=== PATIENT | female | born 1950 | race Caucasian/White ===

== ENCOUNTER → 2016-11-30 | Outpatient (CLI) | payer OTHER ==
[~2016-11-30] MED LIST: ALKA-SELTZER D1 EACH PO; AMBIEN 5 MG TABL5 M1; AMITRIPTYLINE; ASPIRIN325; AUGMENTIN 500-1 EACH PO; BENADRYL25 MG; FEOSOL325 M1 PO; FLEXERIL; HYDROCODONE-APA1 TA1; LEVOTHYROXINE150 MCG; LOPERAMIDE 2 MG2 M1 PO; METFORMIN HCL500 MG PO; METHOCARBAM; MILK THISTLE175 M3; MUCINEX TA600 MG/TA2 PO; OXYCODONE; PEPCID20 MG; PROAIR RESPICL90 MCG IH; SENNA8.6 MG; TYLENOL; VASOTEC10 MG; VASOTEC10 MG PO; VITAMIN B-12500 MCG PO
--- NOTE | ~2016-11-30 | P ---
[facility] [place] [address] PROCEDURE REPORT Name: AWILDA COOK Room #: REG [facility]#: [id number] Admission: 11/30/16 Attend Phys: Mitchel Simmons Discharge: Date of : 48 Report #: [id number] THIS REPORT FOR: //name// CC: Roberto Watson DATE OF SERVICE: 11/30/2016 PROCEDURE PERFORMED: Upper endoscopy with biopsies. HISTORY OF PRESENT ILLNESS: The patient is a 66-year-old female with a history of iron deficiency anemia. She states her hemoglobin has been in the 8-9 range. She denies any obvious bright red blood per rectum or melena. She denies any abdominal pain. Last colonoscopy was approximately 2006 with 3 polyps removed at that time reportedly. Family history is unknown as she is adopted. Plan is for EGD and colonoscopy today. DESCRIPTION OF PROCEDURE: The risks and benefits of the procedure were explained to the patient, those risks including but not limited to bleeding, perforation, the risk of sedation. She understood these risks and gave informed consent. Sedation was given using ketamine and propofol per anesthesia. Next, using a standard Bizzbyinon upper endoscope, the scope was placed in the patient's mouth and advanced under direct vision through the esophagus, stomach and into the second portion of the duodenum. The esophagus was normal throughout. The GE junction was normal. Upon entering the stomach, a small hiatal hernia was noted. Overall, the gastric mucosa was normal. The pylorus was normal and patent. The duodenal bulb, first and second portion were all normal. Biopsies were obtained to rule out the possibility of celiac sprue. The scope was then withdrawn and the procedure terminated. The patient tolerated the procedure well. IMPRESSION: 1. Small hiatal hernia. 2. Otherwise, normal upper endoscopy. RECOMMENDATIONS: 1. Await biopsy results. 2. We will proceed with colonoscopy next today. Thank you for allowing me to participate in her care. <ELECTRONICALLY SIGNED> By: Mitchel Asencio MD 11/30/16 1937 1110 [id number] Mitchel Asencio MD /nt
--- NOTE | ~2016-11-30 | S ---
[facility] [place] [address] SURGICAL PATH RPT PROCEDURE Name: AWILDA COOK Room #: REG [facility].#: [id number] Admission: 11/30/16 Date of : 48 Discharge: Report #: [id number] Path Case #: [id number] PATHOLOGY REPORT COLLECTION DATE: 11/30/2016 RECEIVED DATE: 11/30/2016 SUBMITTING PHYS: Dr. Mitchel Asencio OTHER PHYS: Dr. Edwardo Watson SPECIMEN(S) RECEIVED: A.Duodenal bx B.Polyps rectum x 2 * * * * * * * * * * * * FINAL DIAGNOSIS: A. "Duodenal bx", biopsy: - Small bowel/duodenal mucosa with minimal histologic alteration; no evidence of celiac sprue. B. "Polyps rectum x 2", biopsy: - Hyperplastic polyps. (CLW:all; d/t: 12/01/2016) PATHOLOGIST: Sarah Dominguez M.D. REPORT ELECTRONICALLY SIGNED BY: Sarah Dominguez M.D. DATE/TIME: 12/01/2016 14:14 * * * * * * * * * * * * GROSS PATHOLOGY: A. Received in formalin labeled "Awilda Soliz, duodenal biopsy," are three segments of craig soft tissue measuring 1.0 x 0.9 x 0.2 cm in aggregate dimensions and ranging from 0.3 to 0.5 cm in maximum dimension. The specimen is submitted entirely in cassette A1. B. Received in formalin labeled "Awilda Soliz, polyps rectum 2," are three segments of craig soft tissue measuring 1.0 x 0.8 x 0.2 cm in aggregate dimensions and ranging from 0.3 to 0.8 cm in maximum dimension. The specimen is submitted entirely in cassette B1. (CAA; 11/30/2016) CLINICAL HISTORY: Anemia A: R/O sprue INITIAL CPT CODE(S): A; 96256 B; [id number] [address] SURGICAL PATH RPT PROCEDURE Name: AWILDA COOK Room #: REG [facility]..#: [id number] Admission: 11/30/16 Date of : 48 Discharge: Report #: [id number] Path Case #: [id number] Professional services performed by [facility] at [address] , [place] [address] Technical services performed by [facility] at [address] [place] [address], [address], [place] [address]. [facility] [address] [place] [address] PHONE: [phone] DIRECTOR: Vitaly Garibay M.D. * * * END OF REPORT * * *
--- NOTE | ~2016-11-30 | P ---
[facility] [place] [address] PROCEDURE REPORT Name: AWILDA COOK Room #: REG [facility]#: [id number] Admission: 11/30/16 Attend Phys: Mitchel Simmons Discharge: Date of : 48 Report #: [id number] THIS REPORT FOR: //name// CC: Roberto Watson DATE OF SERVICE: 11/30/2016 PROCEDURE PERFORMED: Colonoscopy with polypectomies. HISTORY OF PRESENT ILLNESS: The patient is a 66-year-old female with a history of iron deficiency anemia, last colonoscopy with polyps reportedly in 2006. Family history is unknown as she is adopted. She denies any obvious blood in her stools. Upper endoscopy was just performed, which was normal. DESCRIPTION OF PROCEDURE: The risks and benefits of the procedure were explained to the patient, those risks including but not limited to bleeding, perforation, the risk of sedation. She understood these risks and gave informed consent. Sedation was given using propofol and ketamine. Next, a digital rectal exam was initially performed, which was normal. Next, using a standard CM Sistemin colonoscope, the scope was placed in the patient's anus and advanced under direct vision to the cecum. The overall prep was good. Cecum and ileocecal valve were normal in appearance. Ascending, transverse and descending colon were normal. Multiple diverticula were noted in the sigmoid colon, no evidence of inflammation, otherwise normal. In the rectum, there were 2 polyps noted, a 5 mm sessile polyp was removed by snare cautery, a 4 mm sessile polyp was removed by cold forceps. On retroflexion, small nonbleeding internal hemorrhoids were noted, otherwise normal colonoscopy. The scope was then withdrawn and the procedure terminated. The patient tolerated the procedure well. IMPRESSION: 1. Two small rectal polyps. 2. Sigmoid diverticulosis. 3. Small internal hemorrhoids. 4. Otherwise, normal colonoscopy. RECOMMENDATIONS: 1. Await biopsy results. 2. If polyps are hyperplastic, repeat in 10 years; if adenomatous polyp, repeat in 5 years. 3. No stigmata of bleeding seen on EGD or colonoscopy today, would recommend Hemoccult testing stools next x 3. [facility] [address] [place] [address] PROCEDURE REPORT Name: AWILDA COOK Room #: REG [facility].#: [id number] Admission: 11/30/16 Attend Phys: Mitchel Simmons Discharge: Date of : 48 Report #: [id number] Thank you for allowing me to participate in her care. <ELECTRONICALLY SIGNED> By: Mitchel Asencio MD 11/30/16 1937 1112 [id number] Mitchel Asencio MD /nt
== END | disposition home or self-care (01) ==
LOC: GI 02:06
DX: K62.1 Rectal polyp (principal); K57.30 Diverticulosis of large intestine without perforation or abscess without bleeding; K64.8 Other hemorrhoids; D50.9 Iron deficiency anemia, unspecified; K44.9 Diaphragmatic hernia without obstruction or gangrene; I21.3 ST elevation (STEMI) myocardial infarction of unspecified site
CPT/HCPCS: 62110; 62900

== ENCOUNTER → 2020-06-18 | Outpatient (CLI) | payer MEDICARE | LOC: SJCVC 13:35 | PROVIDERS: ATTEND Internal Medicine | DX: R94.31 Abnormal electrocardiogram [ECG] [EKG] (principal); I50.42 Chronic combined systolic (congestive) and diastolic (congestive) heart failure; I35.0 Nonrheumatic aortic (valve) stenosis; E78.5 Hyperlipidemia, unspecified; G47.33 Obstructive sleep apnea (adult) (pediatric); I44.7 Left bundle-branch block, unspecified; Z95.0 Presence of cardiac pacemaker; Z95.2 Presence of prosthetic heart valve; Z79.899 Other long term (current) drug therapy; Z87.891 Personal history of nicotine dependence ==

== ENCOUNTER → 2020-12-21 | Outpatient (CLI) | payer MEDICARE | LOC: SJCVC 13:30 | PROVIDERS: ATTEND Internal Medicine | DX: R94.31 Abnormal electrocardiogram [ECG] [EKG] (principal); I50.42 Chronic combined systolic (congestive) and diastolic (congestive) heart failure; I44.7 Left bundle-branch block, unspecified; I35.0 Nonrheumatic aortic (valve) stenosis; E78.5 Hyperlipidemia, unspecified; G47.33 Obstructive sleep apnea (adult) (pediatric); Z95.2 Presence of prosthetic heart valve; Z95.0 Presence of cardiac pacemaker; Z88.5 Allergy status to narcotic agent; Z91.040 Latex allergy status; Z98.890 Other specified postprocedural states; Z88.8 Allergy status to other drugs, medicaments and biological substances; Z79.899 Other long term (current) drug therapy; Z87.891 Personal history of nicotine dependence ==